=== PATIENT | male | born 1995 | race Two or more races ===

== ENCOUNTER 2023-08-10 13:06 | Emergency (ER) | payer MEDICAID, OTHER ==
[~2023-08-10] VITALS: Ht 185.4 cm; Wt 159.0 kg
[2023-08-10 15:33] VITALS: BP 119/77; PULSE 79; RESP 18; TEMP 97.9; O2SAT 96
[2023-08-10] MEDS: KETOROLAC TROMETH 30 MG/ML 1ML VIAL IM ONE (16:30)
[2023-08-10] MEDS: methylPREDNISolone SOD SUCC 125 MG/2 ML VL IM ONE (16:30)
[2023-08-10] MEDS ORDERED: PRED20TA2 PO (16:57)
[2023-08-10] MEDS ORDERED: IBUP1TAB5 PO (16:57)
[2023-08-10] MEDS ORDERED: CYCL-837 PO (16:57)
== END 2023-08-10 18:01 | disposition home or self-care (01) ==
LOC: ER 13:06
DX: G57.01 Lesion of sciatic nerve, right lower limb (principal)
CPT/HCPCS: 96372; 99284; J1885; J2919